=== PATIENT | female | born 1960 | race Caucasian/White ===

== ENCOUNTER → 2017-08-18 | Outpatient (CLI) | payer MEDICAID | LOC: FIMAGING 16:01 | PROVIDERS: ATTEND Internal Medicine | DX: R10.9 Unspecified abdominal pain (principal) ==

== ENCOUNTER → 2018-01-28 | Outpatient (CLI) | payer MEDICAID ==
--- NOTE | 2018-01-28 16:05 | CPEKG ---
Test Reason : PREOP Blood Pressure : / mmHG Vent. Rate : 072 BPM Atrial Rate : 072 BPM P-R Int : 144 ms QRS Dur : 076 ms QT Int : 404 ms P-R-T Axes : 049 -14 130 degrees QTc Int : 443 ms SINUS RHYTHM CONSIDER LEFT VENTRICULAR HYPERTROPHY Confirmed by Neda Carlin ([id number]) on 01/28/2018 4:04:48 PM Referred By: Confirmed By:Neda Carlin
== END ==
LOC: FPAT 09:46
PROVIDERS: ATTEND Internal Medicine Gastroenterology
DX: Z01.810 Encounter for preprocedural cardiovascular examination (principal)

== ENCOUNTER 2018-02-01 17:55 | Day surgery (SDC) | payer MEDICAID ==
--- NOTE | 2018-02-01 14:07 | PDANEPAE ---
ANE History of Present Illness Abd pain ANE Past Medical History - Cardiovascular History Hx Hypertension: Yes Hx Arrhythmias: No Hx Chest Pain: No Hx Coronary Artery / Peripheral Vascular Disease: No Hx CHF / Valvular Disease: No Hx Palpitations: No - Pulmonary History Hx COPD: No Hx Asthma/Reactive Airway Disease: No Hx Recent Upper Respiratory Infection: No Hx Oxygen in Use at Home: Yes O2 in Use at Home (L/minute): 2 Hx Sleep Apnea: Yes Sleep Apnea Screening Result - Last Documented: Positive Pulmonary History Comment: ASTHMA TRIGGERS-COLD WEATHER. PIERO USES HS OXYGEN - Neurologic History Hx Cerebrovascular Accident: No Hx Seizures: No Hx Dementia: No - Endocrine History Hx Diabetes: Yes Endocrine History Comment: IDDM 15YRS - Renal History Hx Renal Disorders: No - Liver History Hx Hepatic Disorders: No - Neurological & Psychiatric Hx Hx Neurological and Psychiatric Disorders: Yes Neurological / Psychiatric History Comment: ANXIETY - Cancer History Hx Cancer: Yes Cancer History Comment: KIDNEY - Congenital Disorder History Hx Congenital Disorders: No - GI History Hx Gastrointestinal Disorders: Yes Gastrointestinal History Comment: PREV COLONOSCOPY. PANCREATITIS. GERD. PAIN WTIH BOWEL MOVEMENTS - Other Health History Other Health History: BROKEN TEETH - Chronic Pain History Chronic Pain: Yes (LOWER LEGS,AND GI) - Surgical History Prior Surgeries: KENNY CATARACT. RT TOTAL KNEE. NUVIA. HYSTERECTOMY. LT NEPHRECTOMY FOR CA. RT BREAST CYST. APPENDECTOMY ANE Review of Systems Review of Systems: - Exercise capacity METS (RN): 3 METS ANE Patient History - Allergies Allergies/Adverse Reactions: MAURICIO Inhibitors Allergy (Verified 01/26/18 12:43) RASH/DIFFICULTY WITH BREATHING adhesive tape Allergy (Verified 01/26/18 14:25) SKIN RASH ciprofloxacin Allergy (Verified 01/26/18 12:43) Unknown codeine Allergy (Verified 01/26/18 12:43) RASH/SOB latex Allergy (Verified 01/26/18 12:43) Rash morphine Allergy (Verified 01/26/18 12:43) Rash oxcarbazepine [From Trileptal] Allergy (Verified 01/26/18 12:43) Unknown pregabalin [From Lyrica] Allergy (Verified 01/26/18 12:43) Rash CONTRAST DYE Allergy (Uncoded 01/26/18 12:43) RASH/DIFFICULTY BREATHING - Home Medications Home medications: home medication list seen and reviewed Home Medications: ALBUTEROL SULFATE PRN 01/26/18 [Last Taken 01/18/18] Amlodipine Besylate DAILY 01/26/18 [Last Taken 01/25/18] HUMULIN R DAILY 01/26/18 [Last Taken 01/31/18] Labetalol HCl BID 01/26/18 [Last Taken 02/01/18] Levemir HS 01/26/18 [Last Taken 01/31/18] Oxycodone HCl PRN 01/26/18 [Last Taken 01/30/18] Potassium Chloride DAILY 01/26/18 [Last Taken 01/29/18] Ranitidine HCl BID 01/26/18 [Last Taken Unknown] novoLOG ONCE 01/26/18 [Last Taken 01/31/18] - NPO status NPO Status: no food or drink >8 hours NPO Since - Liquids (Date): 02/01/18 NPO Since - Liquids (Time): 08:00 NPO Since - Solids (Date): 01/31/18 NPO Since - Solids (Time): 22:30 - Anes Hx Anes Hx: no prior problems - Smoking Hx Smoking Status: Former smoker ANE Labs/Vital Signs - Labs Result Diagrams: 01/28/18 10:10 - Vital Signs Blood Pressure: 143/65 Heart Rate: 74 Respiratory Rate: 14 O2 Sat (%): 95 Height: 154.94 cm Weight: 127.006 kg ANE Physical Exam - Airway Neck exam: decreased ROM Mallampati Score: Class 2 Mouth exam: poor dentition - Pulmonary Pulmonary: no respiratory distress - Cardiovascular Cardiovascular: regular rate and rhythym - ASA Status ASA Status: III ANE Anesthesia Plan Anesthesia Plan: general endotracheal anesthesia
--- NOTE | 2018-02-01 15:15 | PDGENHP ---
History & Physical Chief Complaint: ruq abdominal pain History of Present Illness: 58 year old female presents for evaluation RUQ abdominal pain ,nausea, vomiting, and elevated pancreatic enzymes. Pertinent Past, Social, Family History: PMHx; HT, DM, asthma. SurgHx: hysterectomy, nephrectomy, ccy Relevant Physical Exam: HEENT: anicteric. CV: RRR +s1s2. Lungs: CTAB. Abd; soft, nt, + bs Cardiorespiratory Assessment: ASA 3
--- NOTE | 2018-02-01 16:44 | POSTANESTH ---
Post Anesthetic Evaluation Cardiovascular Status: Similar to Pre-Op Cond Respiratory Status: Similar to Pre-op Cond. Level of Consciousness/Mental Status: Alert and Oriented Pain Control: Adequate, Prn Tx Ordered Nausea/Vomiting Control: Adequate, Prn Tx Ordered Complications Possibly Related to Anesthesia: None Noted
--- NOTE | 2018-02-01 16:48 | GIREPORT ---
[facility] Surgical Services - Endoscopy Department Patient Name: Valeri Tang Procedure Date: 02/01/2018 3:41 PM Patient Type: Outpatient Attending MD/ ER Physician: Dieter Oleary MD Procedure: Upper EUS Indications: Abnormal pancreatic tests, Abdominal pain in the right upper quadrant Patient Profile: 58 year old female presents for evaluation of elevated pancreatic enzym es and RUQ abdominal pain. Providers: Dieter Oleary MD Medicines: General Anesthesia Complications: No immediate complications. Estimated blood loss: Minimal. Description of Procedure: After obtaining informed consent, the endoscope was passed under direct vision. Throughout the procedure, the patient's blood pressure, pulse, and oxygen saturations were monitored continuously. The Endoscope was intro duced through the mouth, and advanced to the second part of duodenum. The [facility] er EUS was accomplished without difficulty. The patient tolerated the proc edure well. The esophagus, stomach, and duodenum were visualized endosonographically. The Endosonoscope was introduced through the mouth , and advanced to the second part of duodenum. Findings: Endoscopic Finding : The examined esophagus was normal. A small hiatal hernia was present. Patchy mildly erythematous mucosa was found in the gastric body and in the gastric antrum. Biopsies were taken with a cold forceps for histology. The examined duodenum was normal. Endosonographic Finding : Pancreatic parenchymal abnormalities were noted in the entire pancreas. These consisted of hyperechoic foci. Moderate hyperechoic material consistent with sludge was visualized endosonographically in the common bile duct. There was no sign of significant endosonographic abnormality in the visualized portion of the liver. No masses were identified. No lymphadenopathy seen. Estimated Blood Loss: Estimated blood loss was minimal. Post Op Diagnosis: - Normal esophagus. - Small hiatal hernia. - Erythematous mucosa in the gastric body and antrum. Biopsied. - Normal examined duodenum. - Pancreatic parenchymal abnormalities consisting of hyperechoic foci w ere noted in the entire pancreas. - Hyperechoic material consistent with sludge was visualized endosonographically in the common bile duct. - There was no evidence of significant pathology in the visualized port ion of the liver. Recommendation: - Perform an ERCP today. - Await path results. - Thank you for allowing me to participate in the care of your patient. Attending Participation: I personally performed the entire procedure. Dieter Oleary MD Dieter Oleary MD 02/01/2018 4:48:21 PM This report has been signed electronicallyDieter Oleary MD Number of Addenda: 0 Note Initiated On: 02/01/2018 3:41 PM [email or web address]
--- NOTE | 2018-02-01 16:58 | GIREPORT ---
[facility] Surgical Services - Endoscopy Department Patient Name: Valeri Tang Procedure Date: 02/01/2018 4:11 PM Patient Type: Outpatient Attending MD/ ER Physician: Dieter Oleary MD Procedure: ERCP Indications: Abdominal pain of suspected biliary origin, Abnormal endoscopic ultraso und of the biliary system Patient Profile: 58 year old female presents for evaluation of abnormal EUS, increased pancreatic enzymes, and RUQ abdominal pain. Suspected SOD. Providers: Dieter Oleary MD Medicines: General Anesthesia Complications: No immediate complications. Estimated blood loss: Minimal. Description of Procedure: After obtaining informed consent, the scope was passed under direct vis ion. Throughout the procedure, the patient's blood pressure, pulse, and oxyg en saturations were monitored continuously. The Duodenalscope was introduc ed through the mouth, and advanced to the duodenum and used to inject cont rast into the bile duct. The ERCP was accomplished without difficulty. The patient tolerated the procedure well. Findings: A miller kiln dried salt film of the abdomen was obtained. Surgical clips, consistent wi th a previous cholecystectomy, were seen in the area of the right upper quad rant of the abdomen. The esophagus was successfully intubated under direct vision. The scope was advanced to a normal major papilla in the descend ing duodenum without detailed examination of the pharynx, larynx and associ ated structures, and upper GI tract. The upper GI tract was grossly normal. A wire was passed into the biliary tree on the first try using the wire g uided technique. The short-nosed traction sphincterotome was passed over the guidewire and the bile duct was then deeply cannulated. The ampulla blanca eared to grasp the sphincterotome. Contrast was injected. I personally interp reted the bile duct images. Ductal flow of contrast was adequate. Image quali ty was adequate. Contrast extended to the entire biliary tree. A 10 mm mary jane iary sphincterotomy was made with a traction (standard) sphincterotome using pure cut current. The sphincterotomy oozed blood. The biliary tree was swept with a 12 mm balloon starting at the bifurcation. Sludge was swept from the duct. Estimated Blood Loss: Estimated blood loss was minimal. Post Op Diagnosis: - A biliary sphincterotomy was performed. - Ampullary stenosis - The biliary tree was swept and sludge was found. Recommendation: - Discharge patient to home (with escort). - Clear liquid diet. - Continue present medications. - Thank you for allowing me to participate in the care of your patient. Attending Participation: I personally performed the entire procedure. Dieter Oleary MD Dieter Oleary MD 02/01/2018 4:58:30 PM This report has been signed electronicallyDieter Oleary MD Number of Addenda: 0 Note Initiated On: 02/01/2018 4:11 PM [email or web address]
[~2018-02-01 17:55] MED LIST: GLUCAGON HCL 1 MG VIAL ONE; INDOMETHACIN 50 MG SUPP PR ONE; IOTHALAMATE MEG (CONRAY) 50 ML VIAL IV ONE; LIDOCAINE 1% 2 ML INJ ID PRN; LR 1,000 ML IV ONE; ONDANSETRON 4 MG/2 ML VIAL IVP PRN; ONDANSETRON 4 MG/2 ML VIAL ONE; PROPOFOL 200 MG/20 ML VIAL ONE; ROCURONIUM 50 MG/5 ML VIAL ONE; SUGAMMADEX SODIUM 200 MG/2 ML VIAL IVP ONE; fentaNYL 100 MCG/2 ML INJ ONE
[2018-02-01 19:02] VITALS: BP 172/77
== END 2018-02-01 19:02 | disposition home or self-care (01) ==
LOC: FSGY 17:55
PROVIDERS: ATTEND Internal Medicine Gastroenterology
DX: K29.50 Unspecified chronic gastritis without bleeding (principal); K83.1 Obstruction of bile duct; K83.8 Other specified diseases of biliary tract
CPT/HCPCS: J1610; J2405; J2704; J3010; Q9961